=== PATIENT | male | born 1990 | race Caucasian/White ===

== ENCOUNTER 2017-01-17 23:01 | Emergency (ER) | payer SELFPAY ==
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
[2017-01-17 23:35] LABS: HEMATOCRIT 52.4 % (37.0-53.0); HEMOGLOBIN 17.1 g/dL (12.0-17.0); MCH 30.6 pg (27.0-34.0); MCHC 32.6 gm/dL (32.0-36.5); MCV 93.7 fl (83.0-98.0); MPV 10.3 fl (9.4-12.4); PLATELET COUNT 330 K/uL (150-450); RBC 5.59 M/uL (4.00-6.00); RDW-CV 13.3 % (11.9-14.6)
[2017-01-17 23:39] LABS: WBC 18.3 K/uL (4.0-11.0)
[2017-01-17 23:43] LABS: INR - (THERAPEUTIC) 0.93 (0.92-1.07); PROTIME 9.8 SECONDS (9.8-11.4); PTT 25 SECONDS (25-32)
[2017-01-17 23:47] LABS: BARBITURATE NEGATIVE (NEGATIVE); COCAINE NEGATIVE (NEGATIVE); OPIATES NEGATIVE (NEGATIVE)
[2017-01-17 23:50] LABS: ALBUMIN 4.8 gm/dL (3.5-5.0); ALK PHOS 71 IU/L (33-138); ALT 22 IU/L (12-78); AST 23 IU/L (10-40); BLOOD UREA NITROGEN 14 mg/dL (6-24); CALCIUM 9.2 mg/dL (8.5-10.5); CHLORIDE 109 mMol/L (96-110); CO2 20 mMol/L (22-32); CPK 213 IU/L (35-332); CREATININE 1.6 mg/dL (0.6-1.3); ESTIMATED GFR (MDRD EQUATION) 52; POTASSIUM 4.2 mMol/L (3.7-5.1); TOTAL BILIRUBIN 0.5 mg/dL (0.0-1.5); TOTAL PROTEIN 7.9 g/dL (6.0-8.4)
[2017-01-17 23:52] LABS: ANION GAP 24.2 (10.0-19.0); SODIUM 149 mMol/L (135-145)
[2017-01-17 23:52] LABS: AMPHETAMINE NEGATIVE (NEGATIVE)
[2017-01-18 00:21] LABS: ABSOLUTE NEUTROPHIL CT (ANC) 11.9 K/uL (1.4-9.0); BANDED NEUTROPHIL # 1.5 K/uL (0.0-0.1); BANDED NEUTROPHILS % 8 %; LYMPHOCYTE # 5.7 K/uL (0.8-4.0); LYMPHOCYTE % 31 %; MONOCYTE # 0.4 K/uL (0.0-1.0); SEGMENTED NEUTROPHIL # 10.4 K/uL (1.4-9.0); SEGMENTED NEUTROPHIL % 57 %
== END 2017-01-18 03:57 | disposition disaster alternative care site (69) ==
LOC: GACC 23:01
PROVIDERS: Emergency Medicine
DX: F10.10 Alcohol abuse, uncomplicated (principal); R41.82 Altered mental status, unspecified; F17.210 Nicotine dependence, cigarettes, uncomplicated; F41.9 Anxiety disorder, unspecified; F32.9 Major depressive disorder, single episode, unspecified; Z90.49 Acquired absence of other specified parts of digestive tract
CPT/HCPCS: G0480; J3360; J7030